=== PATIENT | male | born 1985 | race African-American/Black ===

== ENCOUNTER 2022-04-23 14:33 | Emergency (ER) | payer OTHER ==
[2022-04-23 14:53] VITALS: BP 134/83; PULSE 61; RESP 17; TEMP 98; BMI 21.8
[2022-04-23] MEDS ORDERED: KETOROLAC TROMETHAMINE 30 MG/1 ML VIAL IM ONE (15:53)
[2022-04-23] MEDS ORDERED: METHOCARBAMOL 500 MG TABLET PO ONE (15:53)
== END 2022-04-23 17:13 | disposition home or self-care (01) ==
LOC: JERFT 14:33
PROC: 3E023GC Introduction of Other Therapeutic Substance into Muscle, Percutaneous Approach (ICD-10-PCS; principal; 2022-04-23)
DX: M54.50 Low back pain, unspecified (principal); V49.9XXA Car occupant (driver) (passenger) injured in unspecified traffic accident, initial encounter
CPT/HCPCS: 72100-TC-FY; 99284-25